=== PATIENT | male | born 1955 | race Caucasian/White ===

== ENCOUNTER → 2019-08-21 09:31 | Outpatient (CLI) | payer MEDICARE, SELFPAY ==
--- NOTE | 2019-08-21 | DI.US.S_ITS ---
PROCEDURE: US ABD AORTA ANEURYSM SCREEN INDICATIONS: AAA screening; Carotid artery calcifications TECHNIQUE: Real time scanning was performed of the aorta and iliac arteries, with image documentation. COMPARISON: [facility], , US CAROTID DOPPLER BI, 08/21/2019, 10:29. FINDINGS: Aorta: The proximal aorta is not seen, secondary to bowel gas. Mid-aorta measures 1.7 cm. Distal aortic diameter is 1.6 cm. Iliac arteries: Right common iliac artery measures 0.9 cm. Left common iliac artery measures 0.9 cm. IMPRESSION: Negative for aneurysm. Dictated by: Raffaele Castro M.D. on 08/21/2019 at 11:42 Approved by: Raffaele Castro M.D. on 08/21/2019 at 11:42
--- NOTE | 2019-08-21 | DI.US.S_ITS ---
PROCEDURE: US CAROTID DOPPLER BI INDICATIONS: AAA screening; Carotid artery calcifications TECHNIQUE: Color and pulse Doppler interrogation was performed of both carotid systems, with image documentation and velocity measurements. COMPARISON: None. FINDINGS: Stenosis calculations are based on SRU (Society of Radiologists in Ultrasound) criteria. The flow velocities and the arterial waveforms are normal within both carotid arterial systems. Atherosclerotic plaque is seen on both sides. The estimated degree of internal carotid artery stenosis is less than 50%. Antegrade flow is confirmed within both vertebral arteries. This study is limited by body habitus. IMPRESSION: No hemodynamically significant stenosis is seen. Atherosclerotic plaque is noted bilaterally. Dictated by: Raffaele Castro M.D. on 08/21/2019 at 12:27 Approved by: Raffaele Castro M.D. on 08/21/2019 at 12:28
== END ==
PROVIDERS: Family Provider Family Medicine; PCP Family Medicine; Referring Provider Family Medicine; Visit Provider Family Medicine
DX: Z13.6 Encounter for screening for cardiovascular disorders (principal); I65.23 Occlusion and stenosis of bilateral carotid arteries
CPT/HCPCS: 76706; 93880

== ENCOUNTER → 2020-01-29 16:42 | Outpatient (CLI) | payer MEDICARE, SELFPAY ==
--- NOTE | 2020-01-29 16:46 | DI.RAD.S_ITS ---
PROCEDURE: XR CERVICAL SPINE 4V OR 5V INDICATIONS: LT ARM NUMBNESS TECHNIQUE: 5 views of the cervical spine were acquired. COMPARISON: None. FINDINGS: Bones: No fractures or dislocations to the T1 level. No suspicious bony lesions. There is normal range of motion between flexion and extension, with preserved normal bony alignment. There is slight degenerative disc height reduction at C5-6. No abnormal subluxation on flexion and extension imaging. Soft tissues: Prevertebral soft tissues are normal in thickness. IMPRESSION: Minimal degenerative disc disease C5-6, no abnormal subluxation found. Dictated by: Adiel Jackson M.D. on 01/30/2020 at 8:55 Approved by: Adiel Jackson M.D. on 01/30/2020 at 8:55
== END ==
PROVIDERS: Family Provider Family Medicine; PCP Family Medicine; Referring Provider Family Medicine; Visit Provider Family Medicine
DX: R20.2 Paresthesia of skin (principal)
CPT/HCPCS: 72050

== ENCOUNTER → 2022-03-01 09:17 | Outpatient (CLI) | payer MEDICARE, SELFPAY ==
[2022-03-01 10:16] LABS: COVID19 -Nasal RAPID Negative (Negative)
== END ==
PROVIDERS: Family Provider Family Medicine; PCP Family Medicine; Visit Provider Surgery
DX: Z01.812 Encounter for preprocedural laboratory examination (principal); Z20.822 Contact with and (suspected) exposure to COVID-19
CPT/HCPCS: 87635

== ENCOUNTER 2022-03-01 09:23 | Day surgery (SDC) | payer MEDICARE, SELFPAY ==
--- NOTE | 2022-03-01 | PATH_ITS ---
[facility] Accession Number: [id number] . 01 Material submitted: . colon - TRANSVERSE COLON . 01 Diagnosis: Transverse Colon, Biopsy: Tubular adenoma. [facility] 03/03/2022 1132 Local . 01 Electronically signed: . Madisyn Hood MD, Pathologist NPI- [id number] . 01 Gross description: . TRANSVERSE COLON: Received in formalin is 1 fragment(s) of sims, soft tissue measuring 0.3 x 0.2 x 0.2 cm submitted entirely in 1 cassette(s) /CPE 03/02/2022 0901 Local . 01 Pathologist provided ICD-10: D12.3 . 01 CPT . 120464 Specimen Comment: A courtesy copy of this report has been sent to [phone] Performed at: 01 [facility] [address] [place] [address] [id number] MD Jay Watkins MD Phone: [phone]
[2022-03-01 10:26] VITALS: BP 167/81; PULSE 52; RESP 18; TEMP 36.8; O2SAT 95; BMI 40.1
[2022-03-01] MEDS: LACTATED RINGERS 1,000 ML 200 ML IV (10:42)
--- NOTE | 2022-03-01 11:22 | PM.HP.1 ---
History of Present Illness History of Present Illness Date Patient Seen: 03/01/22 Time Patient Seen: 11:22 Chief complaint: SDC Narrative: The patient presents for colorectal screening. Previous colonoscopy 5 years ago was notable for benign polyps quantity unknown. No personal or family history of colon cancer. On further history denies any recent gastrointestinal symptoms. No nausea, vomiting, abdominal pain, loss of appetite, unexplained weight loss, change in bowel habits, or blood per rectum. Patient History Medical History Morbid obesity with BMI of 40.0-44.9, adult Obstructive sleep apnea of adult Snoring Family & Social History Social History: household members spouse lives independently Yes caregiver/support person No Tobacco & Substance use: Smoking Status Never smoker alcohol intake current alcohol intake frequency holiday/special occasion Substance Use Type does not use Meds Home Medications and Allergies Home Medications Medication Instructions Recorded Confirmed Type aspirin 81 mg chewable tablet 1 tab PO QDAY ##0 09/03/12 04/19/18 History cholecalciferol (vitamin D3) 50 1 tab PO QDAY ##0 12/15/16 03/01/22 History mcg (2,000 unit) tablet (Vitamin D3) fluticasone propionate 50 1 spray intranasal QDAY ##0 12/15/16 03/01/22 History mcg/actuation nasal spray,suspension (Flonase Allergy Relief) losartan 25 mg tablet 25 mg PO DAILY 10/25/17 03/01/22 History Respironics DreamStation CPAP #1 ea 04/19/18 04/19/18 History amlodipine 10 mg tablet 10 mg PO DAILY 04/19/18 03/01/22 History Cardizem 240 mg DAILY 03/01/22 03/01/22 History methocarbamol 500 mg tablet 500 mg 03/01/22 History Allergies Allergy/AdvReac Type Severity Reaction Status Date / Time No Known Allergies Allergy Uncoded 04/19/18 15:02 Exam Vital Signs (past 8 hours): - 03/01/22 10:26 Temperature 98.2 F Pulse Rate 52 L Respiratory Rate 18 Blood Pressure 167/81 H Pulse Oximetry 95 Oxygen Delivery Method Room Air Oxygen Delivery Method Room Air Narrative Exam Narrative: General adult man alert oriented no acute distress Abdomen soft nontender nondistended Assessment & Plan Assessment & Plan narrative: The patient requires colorectal screening and colonoscopy is recommended. Technical details were discussed. Risks, benefits, alternatives explained. Risks including but not limited to myocardial infarction, aspiration, bleeding, pain, missed lesion, incomplete examination, need for further radiographic studies, colonic perforation, and need for major abdominal surgery were discussed. All questions were answered to their satisfaction, and they are in agreement with this plan. Time Spent With Patient Critical Care time: I spent a total of [] minutes of critical care time on this patient's care today; this time is exclusive of procedural time.
--- NOTE | 2022-03-01 11:25 | PM.OP.COLON ---
Operative Date/Time/Diagnoses Date of procedure: 03/01/22 Time of procedure: 11:25 Pre-op diagnosis: Screening colonoscopy Post-op diagnosis: same Procedure & Clinicians Study performed: Screening colonoscopy Same procedure as scheduled: Yes Indications: Colorectal screening Surgeon: Jignesh Child Procedure Notes Procedure in detail: The history and physical was performed/updated and the patient is ASA class is 3. The procedure was discussed in detail with the patient. Potential risks complications including infection, bleeding, missed diagnosis, perforation, need for surgery, and were explained. Their questions were answered and informed consent was obtained. Patient was brought to the procedure room and placed standard monitoring equipment. The patient's vital signs were monitored continuously throughout the entire procedure. Prior to starting time-out was performed. The patient was placed in the left lateral recumbent position. Procedural sedation was administered by anesthesia. Examination began with a thorough inspection of the perianal area there was no evidence of fissures, fistulae, external hemorrhoids or cutaneous malignancy. The colonoscopy scope was then placed into the anal canal and was advanced to the cecum, which was identified by the ileocecal valve, the appendiceal orifice and the confluence of the taenia. The scope was then slowly withdrawn examining colon thoroughly in all directions, irrigating it of any residual stool. FINDINGS 1. Transverse colonic polyp 5 mm removed with Jumbo forceps 2. Internal hemorrhoids The patient tolerated the procedure well. They will be discharged once criteria are met. The prep was of good/excellent quality. The withdrawl time was 6 minutes. Specimen(s): other (Transverse colon polyp) Impression: Colonic polyp Post-procedure Recommendations: High fiber diet Plan for aftercare: Follow-up dependent on pathology findings Disposition: same day surgery
[2022-03-01 12:03] VITALS: BP 152/104; PULSE 55; RESP 15; TEMP 36.2; O2SAT 96
[2022-03-01 12:07] VITALS: BP 148/75; PULSE 54; RESP 18; O2SAT 95
[2022-03-01 12:12] VITALS: BP 125/68; PULSE 47; RESP 12; O2SAT 95
[2022-03-01 12:30] VITALS: BP 137/81; PULSE 45; TEMP 36.2; O2SAT 94
== END 2022-03-01 12:44 | disposition home or self-care (01) ==
PROVIDERS: Family Provider Family Medicine; PCP Family Medicine; Referring Provider Surgery; Visit Provider Surgery
PROC: 0DJD8ZZ Inspection of Lower Intestinal Tract, Via Natural or Artificial Opening Endoscopic (ICD-10-PCS; CPT 45378; principal; 2022-03-01 10:45)
DX: Z12.11 Encounter for screening for malignant neoplasm of colon (principal); G47.33 Obstructive sleep apnea (adult) (pediatric); E66.01 Morbid (severe) obesity due to excess calories; Z68.41 Body mass index [BMI] 40.0-44.9, adult; Z20.822 Contact with and (suspected) exposure to COVID-19; K64.8 Other hemorrhoids; D12.3 Benign neoplasm of transverse colon; Z01.812 Encounter for preprocedural laboratory examination
CPT/HCPCS: 45380; 87635; C9803; J2704

== ENCOUNTER → 2023-04-12 12:41 | Outpatient (CLI) | payer MEDICARE, SELFPAY ==
--- NOTE | 2023-04-12 12:44 | DI.US.S_ITS ---
PROCEDURE: US SOFT TISSUE HEAD AND NECK INDICATIONS: MASS OF LEFT SIDE OF NECK TECHNIQUE: Real-time scanning was performed of the neck region of interest, with image documentation. COMPARISON: None. FINDINGS In the region of interest of the left posterior neck/laterally is 0.8 cm short axis lymph node is seen with expected fatty hilum. Lymph nodes shorter than 1 cm on short axis are considered normal in size. IMPRESSION Normal appearing lymph node seen Dictated by: Deniz Matos M.D. on 04/12/2023 at 15:51 Approved by: Deniz Matos M.D. on 04/12/2023 at 15:55
== END ==
PROVIDERS: Family Provider Family Medicine; PCP Family Medicine; Referring Provider Family Medicine; Visit Provider Family Medicine
DX: R22.1 Localized swelling, mass and lump, neck (principal)
CPT/HCPCS: 76536

== ENCOUNTER → 2023-06-08 12:32 | Outpatient (CLI) | payer MEDICARE, SELFPAY ==
--- NOTE | 2023-06-08 | DI.ECHO.S_ITS ---
[facility]---------+ [facility] +---------+ : : [address] [place] : : : : [id number] : : : : Phone: [phone]+ Echocardiogram Report + + :Name: VONDA CAMPOVERDE Study Date: 06/08/2023 Height: 72 in : :[facility] ReadingLocation: Weight: 285 lb : : Gender: Male BSA: 2.5 m2 : :: 1955 Age: 67 yrs BP: 175/92 mmHg: :Reason For Study: CARDIAC MURMUR : :Ordering Physician: JANEY, : :CIPRIANO Performed By: Beth Mcginnis : :Referring: CIPRIANO TOTH : + + Interpretation Summary The patient was in sinus bradycardia with heart rates between 43-49 bpm during the exam. The patient had a bundle branch block rhythm during the exam. The left ventricle is normal in size and wall thickness. The left ventricular ejection fraction is normal. The ejection fraction is estimated to be 55-60%. Diastolic parameters suggest a pseudonormalization pattern, consistent with probable elevated filling pressures. The right ventricle is mildly dilated. The right ventricular systolic function is normal. There is mild to moderate mitral regurgitation. Aortic valve was not well-visualized. Cannot rule out bicuspid aortic valve. Calcified nodular calcification of presumed noncoronary cusp with some restriction without any significant aortic stenosis. The peak aortic velocity is 2.0 m/sec. The aortic valve mean gradient is 15 mmHg. The calculated aortic valve area is 1.8 cm2. There is mild aortic stenosis. The IVC is of normal diameter and collapses greater than 50% with a sniff. This suggests a low right atrial pressure of 3 mm Hg. The dimensions of the ascending aorta are normal. Procedure: A two-dimensional transthoracic echocardiogram with color flow and Doppler was performed. The study quality was technically adequate. There is no prior echocardiogram noted for this patient. The patient was in sinus bradycardia with heart rates between 43-49 bpm during the exam. The patient had a bundle branch block rhythm during the exam. Left Ventricle: The left ventricle is normal in size and wall thickness. There is no thrombus. The ejection fraction is estimated to be 55-60%. The left ventricular ejection fraction is normal. There are no focal wall motion abnormalities. MV E/A: 1.3 Med Peak E' Eduardo: 5.5 cm/sec E/E' med: 21.1. Diastolic parameters suggest a pseudonormalization pattern, consistent with probable elevated filling pressures. Right Ventricle: The right ventricle is mildly dilated. The right ventricular systolic function is normal. Atria: The left atrium is mildly dilated. Right atrial size is normal. There is no Doppler evidence for an interatrial shunt. Mitral Valve: The mitral valve leaflets appear mildly thickened, but open well. There is mild mitral annular calcification. There is mild to moderate mitral regurgitation. Aortic Valve: There is discrete nodular thickening of the non- coronary cusp. Aortic valve was not well-visualized. Cannot rule out bicuspid aortic valve. Calcified nodular calcification of presumed noncoronary cusp with some restriction without any significant aortic stenosis. There is mild aortic stenosis. The peak aortic velocity is 2.0 m/sec. The aortic valve mean gradient is 15 mmHg. The calculated aortic valve area is 1.8 cm2. No aortic regurgitation is present. Tricuspid Valve: The tricuspid valve is normal in structure and function. There is mild tricuspid regurgitation. Pulmonary artery pressures cannot be estimated because of the lack of a measurable TR jet velocity. Pulmonic Valve: The pulmonic valve leaflets are thin and pliable; valve motion is normal. There is mild pulmonic regurgitation. Great Vessels: The aortic root is normal size. The dimensions of the ascending aorta are normal. The IVC is of normal diameter and collapses greater than 50% with a sniff. This suggests a low right atrial pressure of 3 mm Hg. Pericardium/ Pleura There is no pericardial effusion. There is no pleural effusion. MMode/2D Measurements & Calculations LVIDd: 5.7 cm LVOT diam: 2.1 cm LVIDs: 3.8 cm Ao root diam: 3.6 cm FS: 34.2 % asc Aorta Diam: 3.6 cm EPSS: 0.95 cm IVSd: 1.1 cm LVPWd: 0.93 cm LV howell. diameter/BSA (cm/m^2): 2.3 LV sys. diameter/BSA (cm/m^2): 1.5 LA A2 area: 28.3 cm2 RA long axis: 6.4 cm LA A4 area: 25.0 cm2 RA area: 23.5 cm2 LA length (vol): 6.3 cm RA vol: 73.4 ml LA vol: 94.7 ml RA : 29.7 ml/m2 LA vol index: 38.2 ml/m2 IVC diam: 1.7 cm RVD1 (basal): 4.4 cm TAPSE: 2.2 cm Doppler Measurements & Calculations Ao V2 max: 195.3 cm/sec LVOT Max Eduardo: 99.2 cm/sec Ao V2 mean: 137.7 cm/sec LV V1 max P.9 mmHg Ao max P.2 mmHg LV V1 VTI: 24.6 cm Ao mean P.0 mmHg ENEDELIA(I,D): 1.8 cm2 Ao V2 VTI: 47.2 cm ENEDELIA(V,D): 1.8 cm2 sev ratio: 0.52 ENEDELIA indexed to BSA (cm^2/m^2): 0.74 MV E max eduardo: 116.4 cm/sec PA V2 max: 102.5 cm/sec MV A max eduardo: 88.3 cm/sec PA V2 mean: 70.4 cm/sec MV E/A: 1.3 PA mean P.2 mmHg Med Peak E' Eduardo: 5.5 cm/sec PA pr(Accel): 31.0 mmHg E/E' med: 21.1 Lat Peak E' Eduardo: 9.3 cm/sec E/E' lat: 12.6 E/e' average: 16.8 MV dec time: 0.20 sec SV(LVOT): 86.7 ml Reading Physician:[id number] PM
== END ==
LOC: ECHO 12:32
PROVIDERS: Family Provider Family Medicine; PCP Family Medicine; Referring Provider Family Medicine; Visit Provider Family Medicine
DX: R01.1 Cardiac murmur, unspecified (principal); I08.3 Combined rheumatic disorders of mitral, aortic and tricuspid valves
CPT/HCPCS: 93306

== ENCOUNTER → 2024-05-22 16:02 | Outpatient (CLI) | payer OTHER, SELFPAY ==
--- NOTE | 2024-05-22 16:07 | DI.RAD.S_ITS ---
PROCEDURE: XR KNEE LT 1TO2V INDICATIONS: ACUTE PAIN OF LEFT KNEE TECHNIQUE: 2 views of the knee were acquired. COMPARISON: None. FINDINGS: Bones: No fractures or dislocations. No suspicious bony lesions. Mild joint space narrowing in the lateral compartment. Tiny marginal osteophytes at the anterior compartment. Soft tissues: No joint effusion. No suspicious soft tissue calcifications. IMPRESSION: No acute bony abnormality or significant effusion. Mild degenerative changes in the lateral anterior compartment. Approved by: Doretha Barnes M.D.,Ph.D. on 05/23/2024 at 6:21
== END ==
PROVIDERS: Family Provider Family Medicine; PCP Family Medicine; Referring Provider Family Medicine; Visit Provider Family Medicine
DX: M25.562 Pain in left knee (principal)
CPT/HCPCS: 73560